=== PATIENT | female | born 1990 | race African-American/Black ===

== ENCOUNTER 2017-08-02 13:40 | Emergency (ER) | payer OTHER ==
[~2017-08-02] VITALS: Ht 154.9 cm; Wt 61.2 kg
== END 2017-08-02 14:55 | disposition home or self-care (01) ==
LOC: ER 13:40
DX: S61.213A Laceration without foreign body of left middle finger without damage to nail, initial encounter (principal); W25.XXXA Contact with sharp glass, initial encounter; Y93.89 Activity, other specified; Y92.89 Other specified places as the place of occurrence of the external cause; Y99.8 Other external cause status